=== PATIENT | female | born 1975 | race Caucasian/White ===

== ENCOUNTER → 2018-02-07 | Outpatient (CLI) | payer BC ==
--- NOTE | 2018-02-08 14:24 | MM ---
Reason for exam: screening (asymptomatic). Last mammogram was performed 2 years and 10 months ago. History: Family history of breast cancer in maternal aunt. Took hormonal contraceptives for 10 years. Physical Findings: A clinical breast exam by your physician is recommended on an annual basis and results should be correlated with mammographic findings. MG 3D Screening Mammo W/Cad Bilateral CC and MLO view(s) were taken. Prior study comparison: March 26, 2015, bilateral MG 3d diag mammo w/cad [facility]. May 16, 2013, CAD bilateral diagnostic mammogram. The breast tissue is heterogeneously dense. This may lower the sensitivity of mammography. No significant changes when compared with prior studies. ASSESSMENT: Negative, BI-RAD 1 RECOMMENDATION: Routine screening mammogram of both breasts in 1 year.
== END ==
LOC: RADMAMWWP 09:34
PROVIDERS: ATTEND Obstetrics & Gynecology
DX: Z12.31 Encounter for screening mammogram for malignant neoplasm of breast (principal)
CPT/HCPCS: 77063; 77067

== ENCOUNTER 2018-06-15 08:47 | Observation (INO) | payer BC ==
[2018-06-15] MEDS ORDERED: ASPIRIN 81 MG PO STA (09:03)
[2018-06-15] MEDS ORDERED: SODIUM CHLORIDE 0.9% 1,000 ML IV STA ×2 (09:03)
--- NOTE | 2018-06-15 09:09 | ED ---
Chest Pain HPI - General Chief Complaint: Chest Pain Stated Complaint: palpataions Time Seen by Provider: 06/15/18 08:58 Source: patient, RN notes reviewed, old records reviewed Mode of arrival: ambulatory Limitations: no limitations - History of Present Illness Initial Comments: Patient is a 42-year-old female who presents emergency department today co mplaining of intermittent chest pain since Tuesday. She complains of an episode of feeling flushed and palpitations starting this morning. Patient reports she was standing getting ready for work at a warm feeling come over her body at that time had some palpitations complaint of left arm numbness and tingling. Patient reports she called EMS but then decided to have her drive her to the ospital. She does have a strong family history of heart disease, father at age 55 from heart attack. Patient states that she has no personal medical history besides migraines. Patient denies any chest pain at this time. She reports that palpitations subsided. - Related Data Home Medications Medication Instructions Recorded Confirmed Aspirin/Acetaminophen/Caffeine 1 tab PO Q12H PRN 06/15/18 06/15/18 [Excedrin Migraine Caplet] Ibuprofen [Motrin Ib] 200 mg PO Q6H PRN 06/15/18 06/15/18 Allergies Allergy/AdvReac Type Severity Reaction Status Date / Time No Known Allergies Allergy Verified 06/15/18 09:00 Review of Systems ROS Statement: Those systems with pertinent positive or pertinent negative responses have been documented in the HPI. ROS Other: All systems not noted in ROS Statement are negative. EKG Findings - EKG Comments: EKG Findings:: EKG performed shows normal sinus rhythm abnormal EKG noted. Ventricular rate is 76 bpm. SC interval is 146 ms. QRS duration 92 ms. QT QTc is 380/427 ms. No evidence of ST elevation or T-wave inversion. Past Medical History Past Medical History: No Reported History History of Any Multi-Drug Resistant Organisms: None Reported Past Surgical History: Orthopedic Surgery Past Psychological History: No Psychological Hx Reported Smoking Status: Never smoker Past Alcohol Use History: Occasional Past Drug Use History: None Reported General Exam - General Exam Comments Initial Comments: 42-year-old female, alert and oriented. No significant distress. Limitations: no limitations General appearance: alert, in no apparent distress Head exam: Present: atraumatic, normocephalic, normal inspection Eye exam: Present: normal appearance, PERRL, EOMI. Absent: scleral icterus, conjunctival injection, periorbital swelling ENT exam: Present: normal exam, mucous membranes moist Neck exam: Present: normal inspection. Absent: tenderness, meningismus, lymphadenopathy Respiratory exam: Present: normal lung sounds bilaterally. Absent: respiratory distress, wheezes, rales, rhonchi, stridor Cardiovascular Exam: Present: regular rate, normal rhythm, normal heart sounds. Absent: systolic murmur, diastolic murmur, rubs, gallop, clicks GI/Abdominal exam: Present: soft, normal bowel sounds. Absent: distended, tenderness, guarding, rebound, rigid Extremities exam: Present: normal inspection, full ROM, normal capillary refill. Absent: tenderness, pedal edema, joint swelling, calf tenderness Back exam: Present: normal inspection Neurological exam: Present: alert, oriented X3, CN II-XII intact Psychiatric exam: Present: normal affect, normal mood Skin exam: Present: warm, dry, intact, normal color. Absent: rash Course Vital Signs 06/15/18 06/15/18 06/15/18 08:51 09:20 09:50 Temperature 98.8 F Pulse Rate 98 78 82 Respiratory 18 16 17 Rate Blood Pressure 140/83 141/88 129/107 O2 Sat by Pulse 99 99 98 Oximetry 06/15/18 10:00 Temperature Pulse Rate 73 Respiratory 9 L Rate Blood Pressure 129/107 O2 Sat by Pulse 100 Oximetry Chest Pain MDM - MDM 2-year-old female with family history of cardiac disease presents emergency Department today with complaint of palpitations over the past few days. She states today she woke up with a flushed feeling complained of some chest pain left arm tingling. Patient denies any nausea. She states that time she was also having some palpitations. Upon arrival to ED she states that her pain is diminished and no further palpitations. At this time patient's EKG shows sinus rhythm. IV was established blood work completed. Blood work was reviewed and unremarkable. A negative first troponin. Patient was chest x-ray shows no acute critical Merry process. No significant change from prior. Discussed concerns for her episodes of chest pain or discomfort like to have the Patient for repeat troponins. Discussed this case with Dr. Truong discussed the case with Dr. Miles. Disposition Clinical Impression: History of palpitations, Chest pain Disposition: ADMITTED IP TO THIS HOSP Condition: Stable Is patient prescribed a controlled substance at d/c from ED?: No Referrals: Ramses Miles MD [Primary Care Provider] - 1-2 days Time of Disposition: 11:57
[2018-06-15 09:44] LABS: Basophils % (A) 1 %; Eosinophils # (A) 0.1 k/uL (0-0.7); Eosinophils % (A) 2 %; HCT 38.7 % (34.0-46.0); HGB 12.6 gm/dL (11.4-16.0); Lymphocytes # (A) 0.9 k/uL (1.0-4.8); Lymphocytes % (A) 24 %; MCH 27.4 pg (25.0-35.0); MCHC 32.6 g/dL (31.0-37.0); MCV 83.8 fL (80.0-100.0); Mean Platelet Volume 7.8; Monocytes # (A) 0.3 k/uL (0-1.0); Monocytes % (A) 8 %; Neutrophils # (A) 2.4 k/uL (1.3-7.7); Neutrophils % (A) 63 %; Platelet Count 312 k/uL (150-450); RBC 4.62 m/uL (3.80-5.40); RDW 13.6 % (11.5-15.5); WBC 3.8 k/uL (3.8-10.6)
--- NOTE | 2018-06-15 09:44 | XR ---
EXAMINATION TYPE: XR chest 2V DATE OF EXAM: 06/15/2018 COMPARISON: Prior chest x-ray April 29, 2011. HISTORY: Heart palpitations with chest pain. TECHNIQUE: Frontal and lateral views of the chest are obtained. FINDINGS: Overlying EKG leads are redemonstrated. There is no focal air space opacity, pleural effusi on, or pneumothorax seen. The cardiac silhouette size is within normal limits. The osseous structu res are intact. IMPRESSION: No acute cardiopulmonary process. No significant change from prior.
[2018-06-15 09:52] LABS: Partial Thromboplastin Time 22.8 sec (22.0-30.0); Prothrombin Time 10.4 sec (9.0-12.0)
[2018-06-15 10:00] LABS: ALT 21 U/L (9-52); AST 18 U/L (14-36); Albumin 4.4 g/dL (3.5-5.0); Alkaline Phosphatase 57 U/L (38-126); Amylase 45 U/L (30-110); Anion Gap 8 mmol/L; Blood Urea Nitrogen 14 mg/dL (7-17); Calcium 9.4 mg/dL (8.4-10.2); Carbon Dioxide 25 mmol/L (22-30); Chloride 107 mmol/L (98-107); Glucose 93 mg/dL (74-99); Lipase 96 U/L (23-300); Magnesium 1.8 mg/dL (1.6-2.3); Potassium 4.1 mmol/L (3.5-5.1); Sodium 140 mmol/L (137-145); Total Bilirubin 0.5 mg/dL (0.2-1.3)
[2018-06-15] MEDS ORDERED: NITROGLYCERIN SL TABS 0.4 MG TAB SUBLINGUAL PRN (11:58)
[2018-06-15] MEDS ORDERED: IBUPROFEN 200 MG TAB PO PRN (19:26)
[2018-06-16 04:38] LABS: Cholesterol 182 mg/dL (<200); HDL Cholesterol 61 mg/dL (40-60); LDL Cholesterol,Calculated 113 mg/dL (0-99); Triglycerides 41 mg/dL (<150)
[2018-06-16] MEDS ORDERED: ACETAMINOPHEN TAB 500 MG TAB PO STA (07:03)
[2018-06-16 07:58] VITALS: RESP 18
[2018-06-16] MEDS ORDERED: ASPIRIN 325 MG TAB PO SCH (09:00)
--- NOTE | 2018-06-16 09:37 | P.HPIM ---
History of Present Illness H&P Date: 06/16/18 Chief Complaint: Chest pressure. The patient has been complaining of intermittent chest pressure with radiation to the jaw but no nausea. No diaphoresis is stated. She was not necessary doing anything active. And she's never had symptoms like this in the past but however given her family history of premature [place] in her father and grandfather, she was appropriately admitted for observation and evaluation. She's pain-free now. No enzymatic elevation was noted. She recently saw me as a new patient and was started on amitriptyline but she has not started this medication. We're giving this to her for insomnia/chronic headaches. Review of Systems Constitutional: Denies chills, Denies fever Eyes: denies blurred vision, denies pain Ears, nose, mouth and throat: Denies headache, Denies sore throat Cardiovascular: Reports as per HPI, Reports chest pain, Denies leg edema, Denies lightheadedness, Denies orthopnea, Denies shortness of breath Respiratory: Denies cough Gastrointestinal: Denies abdominal pain, Denies diarrhea, Denies nausea, Denies vomiting Genitourinary: Denies dysuria, Denies hematuria Musculoskeletal: Denies myalgias Past Medical History Past Medical History: No Reported History Additional Past Medical History / Comment(s): Migraines, seasonal allergies, UTI. History of Any Multi-Drug Resistant Organisms: None Reported Past Surgical History: Orthopedic Surgery Additional Past Surgical History / Comment(s): R patellar surgery Past Anesthesia/Blood Transfusion Reactions: No Reported Reaction Smoking Status: Never smoker - Past Family History Father Family Medical History: Myocardial Infarction ([place]) Additional Family Medical History / Comment(s): Father of a [place] at the age of 55yrs. Mother Family Medical History: Hyperlipidemia, Hypertension Medications and Allergies Home Medications Medication Instructions Recorded Confirmed Type Aspirin/Acetaminophen/Caffeine 1 tab PO Q12H PRN 06/15/18 06/15/18 History [Excedrin Migraine Caplet] Ibuprofen [Motrin Ib] 200 mg PO Q6H PRN 06/15/18 06/15/18 History Allergies Allergy/AdvReac Type Severity Reaction Status Date / Time No Known Allergies Allergy Verified 06/15/18 09:00 Physical Exam Vitals: Vital Signs Temp Pulse Pulse Resp BP BP BP 06/16/18 07:57 99.1 F 74 18 120/78 04/19/19 03:43 98.2 F 71 16 109/71 06/16/18 02:16 16 06/16/18 00:00 98.4 F 82 16 112/67 06/15/18 20:00 16 06/15/18 19:56 98.4 F 66 16 129/78 06/15/18 15:52 98.3 F 76 16 117/73 06/15/18 12:44 98.3 F 91 18 140/80 06/15/18 12:26 98.4 F 87 18 123/83 06/15/18 10:00 73 9 L 129/107 06/15/18 09:50 82 17 129/107 Pulse Ox 06/16/18 07:57 99 06/16/18 03:43 98 06/16/18 02:16 06/16/18 00:00 98 06/15/18 20:00 06/15/18 19:56 96 06/15/18 15:52 97 06/15/18 12:44 99 06/15/18 12:26 98 06/15/18 10:00 100 06/15/18 09:50 98 Intake and Output 06/15/18 06/16/18 06/16/18 22:59 06:59 14:59 Other: # Voids 1 1 Results CBC & Chem 7: 06/15/18 09:22 06/15/18 09:22 Labs: Abnormal Lab Results - Last 24 Hours (Table) 06/15/18 06/15/18 Range/Units 09:22 09:22 Lymphocytes # 0.9 L (1.0-4.8) k/uL LDL Cholesterol, Calc 113 H (0-99) mg/dL HDL Cholesterol 61 H (40-60) mg/dL Thrombosis Risk Factor Assmnt - Choose All That Apply Any of the Below Risk Factors Present?: Yes Each Factor Represents 1 point: Age 41-60 years Other Risk Factors: No Other congenital or acquired thrombophilia - If yes, enter type in comment: No Thrombosis Risk Factor Assessment Total Risk Factor Score: 1 Thrombosis Risk Factor Assessment Level: Low Risk Assessment and Plan (1) Chest pain Current Visit: Yes Status: Acute Code(s): R07.9 - CHEST PAIN, UNSPECIFIED SNOMED Code(s): 37222577 (2) History of palpitations Current Visit: Yes Status: Acute Code(s): Z87.898 - PERSONAL HISTORY OF OTHER SPECIFIED CONDITIONS SNOMED Code(s): 783583732 Plan: Myocardial infraction ruled out. Anticipate stress testing today. Await echocardiogram result. We'll hopefully DC later this afternoon.
--- NOTE | 2018-06-16 10:56 | ECHOF ---
Referral Reason:CP MEASUREMENTS -------- HEIGHT: 165.1 cm WEIGHT: 55.8 kg BP: RVIDd: 2.1 cm (< 3.3) IVSd: 1.0 cm (0.6 - 1.1) LVIDd: 3.9 cm (3.9 - 5.3) LVPWd: 0.9 cm (0.6 - 1.1) IVSs: 1.0 cm LVIDs: 3.2 cm LVPWs: 1.1 cm LA Diam: 2.3 cm (2.7 - 3.8) Ao Diam: 3.0 cm (2.0 - 3.7) AV Cusp: 1.7 cm (1.5 - 2.6) LA Diam: 3.3 cm (2.7 - 3.8) MV EXCURSION: 22.907 mm (> 18.000) MV EF SLOPE: 124 mm/s (70 - 150) EPSS: 1.4 cm MV E Gopi: 0.74 m/s MV DecT: 219 ms MV A Gopi: 0.70 m/s MV E/A Ratio: 1.06 RAP: 5.00 mmHg RVSP: 16.77 mmHg FINDINGS -------- Sinus rhythm. This was a technically good study. LV size, wall thickness and systolic function are normal, with an EF greater than 55%. The left octavio tricular size is normal. The right ventricle is normal in size. The left atrial size is normal. The right atrial size is normal. Interatrial and interventricular septum intact. There is mild aortic valve sclerosis. There is no evidence of aortic regurgitation. Mild mitral regurgitation is present. Mild tricuspid regurgitation present. There is no evidence of pulmonary hypertension. The right v entricular systolic pressure, as measured by Doppler, is 16.77mmHg. There is no pulmonic regurgitation present. The aortic root size is normal. Normal inferior vena cava with normal inspiratory collapse consistent with estimated right atrial pre ssure of 5 mmHg. There is no pericardial effusion. CONCLUSIONS -------- 1. LV size, wall thickness and systolic function are normal, with an EF greater than 55%. 2. The left ventricular size is normal. 3. The right ventricle is normal in size. 4. The left atrial size is normal. 5. The right atrial size is normal. 6. Interatrial and interventricular septum intact. 7. There is mild aortic valve sclerosis. 8. Mild mitral regurgitation is present. 9. Mild tricuspid regurgitation present. 10. There is no evidence of pulmonary hypertension. 11. The right ventricular systolic pressure, as measured by Doppler, is 16.77mmHg. 12. There is no pulmonic regurgitation present. 13. The aortic root size is normal. 14. Normal inferior vena cava with normal inspiratory collapse consistent with estimated right atrial pressure of 5 mmHg. 15. There is no pericardial effusion. GEOGRAPHICAL HISTORIAN: Myesha Betancourt RDCS
[2018-06-16 11:35] VITALS: BP 122/76; PULSE 73; TEMP 98.2
--- NOTE | 2018-06-16 12:30 | ECHOS ---
STRESS ECHOCARDIOGRAM DATE OF SERVICE: 06/16/2018 INDICATIONS: Chest pain. MEDICATIONS: BASELINE HEART RATE: 73 BASELINE BLOOD PRESSURE: 135/69 MAXIMUM HEART RATE: 156 MAXIMUM BLOOD PRESSURE: 208/74 85% MPHR: 151 100% MPHR: 178 METS: 10.3 MAXIMUM STAGE REACHED: III TOTAL EXERCISE TIME: 8 minutes 30 seconds CLINICAL INFORMATION: Baseline EKG revealed normal sinus rhythm without significant ST-T changes. Patient walked for 8 minutes 30 seconds achieved a maximal heart rate of 156 beats per minute. There was a lot of artifact. She did not have any angina. She developed some fatigue and shortness of breath. EKG did not reveal any ST-segment changes to indicate ischemia. There was no arrhythmia. By EKG criteria, this is a negative stress test with good exercise capacity. Baseline echo images revealed normal wall motion and wall thickening of all segments. At peak exercise, there was good augmentation of left ventricular wall motion and wall thickening of all segments suggesting that there is no evidence of stress-induced ischemia on this study. IMPRESSION: 1. Good exercise capacity with a negative stress test by EKG criteria. 2. Negative stress echocardiogram. MMODL / IJN: [id number] /
--- NOTE | 2018-06-16 17:03 | CONS ---
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 She has history of migraine headaches. Other than that, no significant medical problems. She is a reasonably active lady. She came into the hospital because of left arm discomfort initially and then had some sharp pains in the chest. The quality of the pain seemed very atypical. The pain seemed to persist, made her quite concerned. Her chest x-ray was unremarkable. She had an EKG performed, which also did not reveal any significant abnormalities. Her troponin levels are normal. She is resting comfortably without symptoms. These symptoms seem to have been going on for some time but progressively got worse, made her feel quite concerned. She does have a strong family history of premature coronary artery disease. At the time of my evaluation, she is resting comfortably without symptoms. PAST MEDICAL HISTORY: 1. Remarkable for migraine headaches. 2. She is status post some arthroscopic surgery in the past. ALLERGIES: None. MEDICATIONS: She takes some aspirin, Excedrin for migraine. PHYSICAL EXAMINATION: Blood pressure is 110/70, pulse rate is 70 per minute and regular. HEENT unremarkable. Fundus was not examined by me. Neck is supple. No JVD. I do not hear a carotid bruit. There is no thyromegaly. Heart exam reveals S1, S2 heard normally. No rub, murmur or gallop lungs are clear. Abdomen is soft, nontender. Lower extremities reveal normal pulses. No edema. Central nervous system is normal. EKG revealed sinus mechanism, no acute changes. LABORATORY DATA: Laboratory data revealed unremarkable troponins. IMPRESSION: 1. Atypical chest pain. 2. Migraine headaches. RECOMMENDATION: Patient's chest pain is atypical. I am recommending an echocardiogram and a stress echo and if these are normal, she can be discharged with risk factor modification. I discussed my thoughts in detail with the patient. Thank you very much for the consult. MMODL / IJN: [id number] /
== END 2018-06-16 14:48 | disposition home or self-care (01) ==
LOC: EC 08:47 → 1SOBS 11:49
PROVIDERS: ADMIT Family Medicine; ATTEND Family Medicine
DX: R07.89 Other chest pain (principal); G43.909 Migraine, unspecified, not intractable, without status migrainosus; G47.00 Insomnia, unspecified; Z87.898 Personal history of other specified conditions; Z79.899 Other long term (current) drug therapy; Z79.82 Long term (current) use of aspirin; Z87.440 Personal history of urinary (tract) infections; Z82.49 Family history of ischemic heart disease and other diseases of the circulatory system
CPT/HCPCS: 96361 ×3; 96360; 99285; 36415; 93005; 93306; 93351; 80061; 80053; 82150; 83690; 83735; 84484; 85025; 85610; 85730; 71046; G0378 ×2

== ENCOUNTER → 2019-10-16 | Outpatient (CLI) | payer BC ==
[2019-10-16 15:24] LABS: Basophils # (A) 0.1 k/uL (0-0.2); Basophils % (A) 1 %; Eosinophils # (A) 0.1 k/uL (0-0.7); Eosinophils % (A) 1 %; HCT 39.3 % (34.0-46.0); HGB 12.3 gm/dL (11.4-16.0); Lymphocytes # (A) 1.5 k/uL (1.0-4.8); Lymphocytes % (A) 26 %; MCH 27.3 pg (25.0-35.0); MCHC 31.2 g/dL (31.0-37.0); MCV 87.6 fL (80.0-100.0); Mean Platelet Volume 7.7; Monocytes # (A) 0.6 k/uL (0-1.0); Monocytes % (A) 10 %; Neutrophils # (A) 3.4 k/uL (1.3-7.7); Neutrophils % (A) 59 %; Platelet Count 256 k/uL (150-450); RBC 4.49 m/uL (3.80-5.40); RDW 12.8 % (11.5-15.5); WBC 5.7 k/uL (3.8-10.6)
== END | disposition home or self-care (01) ==
LOC: LABPAT 13:17
PROVIDERS: ATTEND Obstetrics & Gynecology
DX: Z01.818 Encounter for other preprocedural examination (principal)
CPT/HCPCS: 85025

== ENCOUNTER 2019-10-23 06:13 | Day surgery (SDC) | payer BC ==
--- NOTE | 2019-10-22 19:30 | P.HPOB ---
History of Present Illness H&P Date: 10/22/19 Chief Complaint: Menorrhagia with regular cycle, family planning This is a 43 y.o. female, 3, para 3, who presents for dilatation and curettage with hysteroscopy and Novasure endometrial ablation along with laparoscopic bilateral tubal ligation via fulgaration due to menorrhagia with regular cycle. She complains of heavy menses occuring every 28 days lasting 6-7 days with large clots. She also has mild dysmenorrhea. She would like definitive surgical treatment for this problem and would like tubal ligation for family planning. She is currently using rhythm method. OB Hx: . History of 3 vaginal deliveries. Arbitrator Hx: Hx of chlamydia treated years ago. Social Hx: . Works at [employer]. Review of Systems Constitutional: Reports fatigue, Denies chills, Denies fever Eyes: denies blurred vision, denies pain Ears, nose, mouth and throat: Denies sore throat Cardiovascular: Denies chest pain, Denies shortness of breath Respiratory: Denies cough Gastrointestinal: Denies abdominal pain, Denies diarrhea, Denies nausea, Denies vomiting Genitourinary: Reports dysmenorrhea, Reports menorrhagia Menstruation: Reports period heavy Musculoskeletal: Denies myalgias Integumentary: Denies pruritus, Denies rash Neurological: Reports headaches (occ), Denies numbness, Denies weakness Psychiatric: Reports anxiety, Reports insomnia, Reports irritability Hematologic/Lymphatic: Reports easy bruising Past Medical History Past Medical History: No Reported History Additional Past Medical History / Comment(s): Migraines, seasonal allergies, UTI. History of Any Multi-Drug Resistant Organisms: None Reported Past Surgical History: Orthopedic Surgery Additional Past Surgical History / Comment(s): R patellar surgery Past Anesthesia/Blood Transfusion Reactions: No Reported Reaction, Postoperative Nausea & Vomiting (PONV) Past Psychological History: Anxiety Smoking Status: Never smoker Past Alcohol Use History: Occasional Past Drug Use History: None Reported - Past Family History Father Family Medical History: Myocardial Infarction ([place]) Additional Family Medical History / Comment(s): Father of a [place] at the age of 55yrs. Mother Family Medical History: Hyperlipidemia, Hypertension Medications and Allergies Home Medications Medication Instructions Recorded Confirmed Type No Known Home Medications 10/22/19 10/22/19 History Allergies Allergy/AdvReac Type Severity Reaction Status Date / Time No Known Allergies Allergy Verified 10/22/19 09:03 Exam Osteopathic Statement: *. No significant issues noted on an osteopathic structural exam other than those noted in the History and Physical/Consult. Intake and Output 10/22/19 10/22/19 10/22/19 06:59 14:59 22:59 Other: Weight 54.431 kg HEENT: within normal limits Heart: regular rate and rhythm Lungs: clear to auscultation bilaterally Abdomen: soft, non-tender Pelvic: uterus is retroverted, non-tender, with no adnexal masses or tenderness Extremities: neg. Dee Dee's Assessment and Plan (1) Menorrhagia with regular cycle Current Visit: No Status: Acute Code(s): N92.0 - EXCESSIVE AND FREQUENT MENSTRUATION WITH REGULAR CYCLE SNOMED Code(s): 079745295 (2) Family planning Current Visit: No Status: Acute Code(s): Z30.09 - ENCOUNTER FOR OT GENERAL CNSL AND ADVICE ON CONTRACEPTION SNOMED Code(s): 545146583 Plan: Proceed with dilatation and curettage with hysteroscopy and Novasure endometrial ablation and laparoscopic bilateral tubal ligation via fulgaration. I have discussed the risks, benefits, and alternative therapies for the above- mentioned procedure and for both sedation/anesthesia as well as necessary blood products administration, if indicated, as they pertain to this patient. The patient has indicated her understanding and acceptance of the risks and procedures discussed.
[~2019-10-23 06:13] MED LIST: DEXAMETHASONE SOD PHOSPHATE 10 MG/ML 1 ML VIAL IV ONE; LACTATED RINGERS 1,000 ML IV SCH; LIDOCAINE 1% (10MG/ML) FOR IV START INTRADERMA PRN; ONDANSETRON 4 MG/2 ML VIAL IVP ONE; Pre Op ABX Message 1 EACH MISC MISCELLANE ONE; fentaNYL (PF) 50 MCG/ML 2 ML AMP IV PRN
[2019-10-23] MEDS ORDERED: ONDANSETRON 4 MG/2 ML VIAL ONE (06:39)
[2019-10-23] MEDS ORDERED: fentaNYL (PF) 50 MCG/ML 2 ML AMP ONE (07:28)
[2019-10-23] MEDS ORDERED: SUCCINYLCHOLINE CHLORIDE 100 MG/5 ML SYR IV ONE (07:28)
[2019-10-23] MEDS ORDERED: GLYCOPYRROLATE 0.2 MG/ML 2 ML VIAL ONE (07:28)
[2019-10-23] MEDS ORDERED: LIDOCAINE 1% INJ 10MG/ML (20 ML MDV) ONE (07:28)
[2019-10-23] MEDS ORDERED: NEOSTIGMINE 1 MG/ML 10 ML VIAL ONE (07:28)
[2019-10-23] MEDS ORDERED: MIDAZOLAM 2 MG/2 ML VIAL ONE (07:28)
[2019-10-23] MEDS ORDERED: PROPOFOL 10 MG/ML 20 ML VIAL IV ONE (07:28)
[2019-10-23] MEDS ORDERED: ROCURONIUM 10 MG/ML (5 ML VIAL) IV ONE (07:28)
[2019-10-23] MEDS ORDERED: KETOROLAC 30 MG/ML 1 ML VIAL ONE (07:28)
[2019-10-23] MEDS ORDERED: BUPIVACAINE (PF) 0.25% 30 ML VIAL SQ ONE ×3 (08:18→08:30)
--- NOTE | 2019-10-23 08:37 | P.OP ---
Date of Procedure: 10/23/19 Preoperative Diagnosis: Menorrhagia with regular cycle Family planning Postoperative Diagnosis: Same plus endometriosis and bilateral ovarian cysts Procedure(s) Performed: Dilation and curettage with hysteroscopy and NovaSure endometrial ablation Laparoscopic bilateral tubal ligation via fulguration Drainage of bilateral ovarian cysts Anesthesia: KATHE Surgeon: Zahida Tapia Estimated Blood Loss (ml): 10 Pathology: other (Endometrial curettings) Condition: stable Disposition: same day Indications for Procedure: This is a 43 y.o. female, 3, para 3, who presents for dilatation and curettage with hysteroscopy and Novasure endometrial ablation along with laparoscopic bilateral tubal ligation via fulgaration due to menorrhagia with regular cycle. She complains of heavy menses occuring every 28 days lasting 6-7 days with large clots. She also has mild dysmenorrhea. She would like definitive surgical treatment for this problem and would like tubal ligation for family planning. She is currently using rhythm method. Operative Findings: Uterus is mid position, sounded to 8-1/2 cm. Cervix is sounded to 3 cm. Upon hysteroscopy, a dyssynchronous endometrial pattern is noted. Both tubal ostia are visualized. Upon laparoscopy, both ovaries did have small endometriomas approximate 2-3 cm each. These were chocolate-colored cystic areas that drained a dark brown discharge. There were some areas of endometriosis noted behind the ovarian fossa on both sides and in the cul-de-sac. Uterus appeared normal. Description of Procedure: The patient is taken to the operating room. She is placed in the dorsal l ithotomy position after general anesthesia was given. She is prepped and draped in the normal sterile fashion. Bladder is drained with a catheter and then removed. Pelvic exam is performed under anesthesia. Uterus is found to be mid position with no adnexal masses. She is placed in slight Trendelenburg position. A right angle retractor is used to visualize the cervix. The anterior lip of the cervix is grasped with a single-tooth tenaculum. Cervix is sounded to 3 cm. Uterus is sounded to 8.5 cm. Cervix is gently dilated with Roe dilators until a hysteroscope could be passed. Hysteroscopy is performed using normal saline. The above noted findings are noted. Next a polyp forceps is introduced. A moderate amount of tissue was obtained. Next medium-sized size sharp curette was placed. A moderate amount of endometrial curettings were obtained. Next NovaSure array was inserted into the endometrial cavity. Length was set at 5.5 cm and width was determined to be 4.5 cm. Next cavity assessment was completed and passed on the first try. Next NovaSure array was fired at 136 W for 54 seconds. Next the array was removed, inspected and then discarded. Next the hysteroscope was reinserted. Uniform charring was noted. Pictures were taken. Hysteroscope was removed. A kroner uterine manipulator is then inserted through the cervix and the balloon is inflated. Single-tooth tenaculum was removed from the anterior lip of the cervix. Minimal bleeding was noted. All other instruments removed from the vagina. Gloves are changed. Attention is then turned to the abdomen. A small stab incision was made with a scalpel in the infraumbilical fold. A towel clip was placed above the umbilicus for retraction. A 5 mm disposable bladeless trocar was then inserted into the peritoneal cavity under direct visualization. Once inside, pneumoperitoneum was achieved with CO2 gas. The insert was removed and the camera was placed. Intraperitoneal placement was confirmed. No bleeding was noted. Next the patient was placed in Trendelenburg position. A small stab incision was made suprapubically and a 5 mm disposable bladeless trocar was inserted into the peritoneal cavity under direct visualization. Once inside pelvic contents were inspected. Next a bipolar Kleppinger instrument was placed through the inferior trocar and the midportion of each tube was brought away from other structures and completely fulgurated on approximate 2-3 cm segment of each tube. Excellent hemostasis was noted. Pictures were taken. There were noted to be bilateral small ovarian cysts that appeared to be a small endometriomas with chocolate colored fluid within them. The right cyst ruptured spontaneously with manipulation with a probe. The left cyst was drained with a aspirating needle. Suction irrigation was completed to remove the cyst fluid. Excellent hemostasis was noted. Pneumoperitoneum was released after the inferior trocar was removed under direct visualization. The upper trocar was then removed. The skin incisions were then closed with 4-0 Vicryl suture in a subcuticular fashion. Incisions were then injected with quarter percent Marcaine. Approximately 4 mL were used. Next the kroner uterine manipulator was removed. Minimal bleeding was noted. All sponge and needle counts are correct. The patient is then taken to recovery room in stable condition.
[2019-10-23] MEDS: HYDROmorphone 0.5 MG/0.5 ML SYRINGE IVP PRN ×2 (09:01→09:17)
[2019-10-23 09:16] VITALS: RESP 16
[2019-10-23 10:23] VITALS: BP 132/85; PULSE 80
[2019-10-23 11:36] VITALS: TEMP 97.5
== END 2019-10-23 10:30 | disposition home or self-care (01) ==
LOC: OR 06:13
PROVIDERS: ATTEND Obstetrics & Gynecology
DX: N92.0 Excessive and frequent menstruation with regular cycle (principal); Z30.2 Encounter for sterilization; N80.1 Endometriosis of ovary; N80.3 Endometriosis of pelvic peritoneum; N83.201 Unspecified ovarian cyst, right side; N83.202 Unspecified ovarian cyst, left side; F41.9 Anxiety disorder, unspecified; G43.909 Migraine, unspecified, not intractable, without status migrainosus; Z88.1 Allergy status to other antibiotic agents; Z87.440 Personal history of urinary (tract) infections; Z98.890 Other specified postprocedural states; Z82.49 Family history of ischemic heart disease and other diseases of the circulatory system
CPT/HCPCS: 81025; 88305; 58563; 58670; 49322; J2250; J1100; J2710; J2405; J2001; J3010; J1885; J0330; J2704; J1170

== ENCOUNTER → 2020-06-11 | Outpatient (CLI) | payer BC ==
--- NOTE | 2020-06-18 10:00 | MM ---
Reason for exam: screening (asymptomatic). Last mammogram was performed 2 years and 4 months ago. History: Family history of breast cancer in maternal aunt. Took hormonal contraceptives for 10 years. Physical Findings: A clinical breast exam by your physician is recommended on an annual basis and results should be correlated with mammographic findings. MG 3D Screening Mammo W/Cad Bilateral CC and MLO view(s) were taken. Prior study comparison: February 07, 2018, bilateral MG 3d screening mammo w/cad. March 26, 2015, bilateral MG 3d diag mammo w/cad [facility]. The breast tissue is heterogeneously dense. This may lower the sensitivity of mammography. Finding: There is a 8 mm obscured round mass located 6 cm from the nipple in the slight upper outer quadrant, anterior position of the left breast. New finding since February 07, 2018 and March 26, 2015. ASSESSMENT: Incomplete: need additional imaging evaluation, BI-RAD 0 RECOMMENDATION: Ultrasound of the left breast. [facility] will attempt to contact patient to return for ultrasound.
== END | disposition home or self-care (01) ==
LOC: RADMAMWWP 15:41
PROVIDERS: ATTEND Obstetrics & Gynecology
DX: Z12.31 Encounter for screening mammogram for malignant neoplasm of breast (principal); Z80.3 Family history of malignant neoplasm of breast
CPT/HCPCS: 77063; 77067

== ENCOUNTER → 2020-06-26 | Outpatient (CLI) | payer BC ==
--- NOTE | 2020-06-26 11:57 | USB ---
Reason for exam: additional evaluation requested from abnormal screening. History: Family history of breast cancer in maternal aunt. Took hormonal contraceptives for 10 years. Physical Findings: Nurse did not find any significant physical abnormalities on exam. US Breast Workup Limited LT Left limited breast ultrasound including focal area of concern, retroareolar and axilla demonstrates a 0.3 x 0.4 x 0.3cm cystic lesion at 1 o'clock. These results were verbally communicated with the patient and result sheet given to the patient on 06/26/20. ASSESSMENT: Suspicious, BI-RAD 4 RECOMMENDATION: Ultrasound core biopsy of the left breast. Called Dr. Tapia's office with mammographic findings and has scheduled an appointment for the patient for 08/14/20 at 8:[address] Saeed. Biopsy scheduled for 07/09/20 at 9:30. PRELIMINARY REPORT CALLED AND FAXED TO DR. SAEED ON 06/26/20.
== END | disposition home or self-care (01) ==
LOC: RADUSWWP 07:31
PROVIDERS: ATTEND Obstetrics & Gynecology
DX: R92.8 Other abnormal and inconclusive findings on diagnostic imaging of breast (principal); Z80.3 Family history of malignant neoplasm of breast

== ENCOUNTER → 2020-07-09 | Day surgery (SDC) | payer BC ==
[2020-07-09 09:43] VITALS: RESP 16
[2020-07-09 11:06] VITALS: BP 127/80; PULSE 77; TEMP 98.8
--- NOTE | 2020-07-09 11:53 | USB ---
EXAMINATION TYPE: US biopsy breast VAD LT, MG diagnostic mammo LT wo CAD DATE OF EXAM: 07/09/2020 CLINICAL HISTORY: R92.8 abnormal mammogram. TECHNIQUE: Ultrasound guided core biopsy of right 1:00 breast. COMPARISON: NONE FINDINGS: The procedure of ultrasound guided core biopsy was explained to the patient. Benefits, alternatives, and risks were discussed. An informed consent was then obtained. The patient was placed in supine positioning for imaging and for the procedure. The overlying skin was prepped and draped in usual sterile fashion. Lidocaine buffered with bicarbonate was used as anesthetic into the skin and subcutaneous tissue up to area of concern in the right 1:00 breast. A sean was made with surgical scalpel. Under ultrasound guidance, a 12-gauge vacuum assisted biopsy gun device was used to obtain 1 core sample. The lesion is no longer visualized. Following this, a biopsy clip was left in lesion. The patient tolerated the procedure well without any immediate complication. The patient was kept in the radiology department for short stay after the procedure and then discharged home in stable condition. IMPRESSION: Successful, uncomplicated ultrasound guided core biopsy of area of concern in the right 1:00 breast, full pathology results to follow. Pathology Results: Benign LEFT BREAST, ONE VIRGIN[place]OCK, ULTRASOUND GUIDED CORE BIOPSY: Fibrocystic changes including cysts, apocrine metaplasia and fibrosis LEFT BREAST, FINE NEEDLE ASPIRATE: Minimally cellular specimen consisting of blood and rare histiocytes. Non-diagnostic. Recommendation Follow up ultrasound of the left breast in 6 months. MAKENZIE
== END ==
LOC: RADUSWWP 09:34
PROVIDERS: ATTEND Surgery
DX: N60.12 Diffuse cystic mastopathy of left breast (principal); N60.82 Other benign mammary dysplasias of left breast; R92.8 Other abnormal and inconclusive findings on diagnostic imaging of breast
CPT/HCPCS: 88305; 88173; 77065; 19083; A4648; J2001

== ENCOUNTER → 2020-10-03 | Outpatient (CLI) | payer BC ==
[2020-10-03 10:14] VITALS: RESP 12
[2020-10-03 11:08] VITALS: BP 142/87; PULSE 60; TEMP 97.6
--- NOTE | 2020-10-03 16:19 | USB ---
EXAMINATION TYPE: US breast aspiration single LT DATE OF EXAM: 10/03/2020 CLINICAL HISTORY: R92.8 abn mammo. TECHNIQUE: Ultrasound guided vaccuum assisted cyst aspiration of left breast. COMPARISON: NONE FINDINGS: The ultrasound guided cyst aspiration procedure was explained to the patient. The risks, b enefits, alternatives were discussed. An informed consent was then obtained. Timeout was performed. The patient was placed in supine positioning for imaging and for the procedure. The overlying skin w as prepped with betadine and sterilely draped in usual sterile fashion. Lidocaine 1% was used as ane sthetic into the skin and deeper breast tissue up to area of concern in the breast. Under ultrasound guidance, an 18-gauge spinal needle was used to obtain red-tinged fluid sample. A b iopsy clip was left in lesion. Wing clip was utilized. Good hemostasis was obtained with direct pressure. Discharge instructions were discussed with the pa debbie. The patient will follow up with the referring physician for results. Postprocedure mammogram: The patient was transferred to mammography for physician ordered post proced ure mammogram for clip placement verification. The clip is in the expected region of the biopsy. Sonia ges were reviewed with the patient. The patient tolerated the procedure well without any immediate complication. The patient was [facility] to home in stable condition. IMPRESSION: 1. Successful ultrasound guided cyst aspiration left breast. Recommendations: 1. Recommendations are pending pathology results.
== END | disposition home or self-care (01) ==
LOC: RADMAMWWP 08:49
PROVIDERS: ATTEND Surgery
DX: R92.8 Other abnormal and inconclusive findings on diagnostic imaging of breast (principal)
CPT/HCPCS: 77065; 77061; 76942; 19000; 76641; A4648; J2001; 88108

== ENCOUNTER → 2023-04-05 | Outpatient (CLI) | payer OTHER ==
--- NOTE | 2023-04-05 10:04 | MM ---
Reason for Exam: Clinical finding. Last mammogram was performed 2 year(s) and 10 month(s) ago. Indicated Problems: Lump or thickening of the right side (size pea) for 8 Month(s). Patient History: Menarche at age 14. First Full-Term at age 28. Patient has history of breast feeding. Hormonal Contraceptives for 10 years until age 37. 10/03/2020, Benign Cyst Aspiration on the left side. 07/09/2020, Benign Core Biopsy on the left side. Maternal aunt had breast cancer. Last menstrual period: 03/23/2023 Risk Values: Yolanda 5 year model risk: 1.2%. NCI Lifetime model risk: 11.3%. Prior Study Comparison: 02/07/2018 Bilateral Screening Mammogram, [facility]. 06/11/2020 Bilateral Screening Mammogram, [facility]. 07/09/2020 Left Diagnostic Mammogram, [facility]. 10/03/2020 Left Diagnostic Mammogram, [facility]. 10/03/2020 Left Diagnostic Mammogram, [facility]. Tissue Density: The breast tissue is heterogeneously dense. This may lower the sensitivity of mammography. Findings: Analyzed By CAD. Nodular density far posterior right breast corresponds to the palpable abnormality. Ultrasound is advised. No distinct nodular mass within the left breast. Microclip marker's left breast from prior cyst aspirations. No suspicious calcifications present. Overall Assessment: Incomplete: need additional imaging evaluation, BI-RAD 0 Management: Diagnostic Breast Ultrasound of the right breast. . Results were given to the patient verbally at the time of exam. Patient should continue monthly self-breast exams. A clinical breast exam by your physician is recommended on an annual basis. This exam should not preclude additional follow-up of suspicious palpable abnormalities. Note on Yolanda scores and lifetime risk: 1. A Yolanda score greater than 3% is considered moderate risk. If this is the case, consider specialist referral to assess eligibility for a risk reducing agent. 2. If overall lifetime risk for the development of breast cancer is 20% or higher, the patient may qualify for future screening with alternating mammogram and breast MRI. Electronically signed and approved by: Jake Harley M.D. Radiologis
--- NOTE | 2023-04-05 10:28 | USB ---
Reason for Exam: Clinical finding. Patient History: Menarche at age 14. First Full-Term at age 28. Patient has history of breast feeding. Hormonal Contraceptives for 10 years until age 37. 10/03/2020, Benign Cyst Aspiration on the left side. 07/09/2020, Benign Core Biopsy on the left side. Maternal aunt had breast cancer. Risk Values: Yolanda 5 year model risk: 1.2%. NCI Lifetime model risk: 11.3%. Technique: Method: Targeted. Prior Study Comparison: 07/09/2020 Left Diagnostic Mammogram, [facility]. 10/03/2020 Left Diagnostic Mammogram, [facility]. 10/03/2020 Left Diagnostic Mammogram, [facility]. Findings: The lateral section of the breast of the right breast was scanned. Hyperechoic subcutaneous lesion at the right 9:00 position 13 cm from the nipple measuring 6 x 3 mm. This likely reflects a lipoma. Average clinically. Overall Assessment: Benign, BI-RAD 2 Management: Screening Mammogram of both breasts in 1 year. A clinical breast exam by your physician is recommended on an annual basis and results should be correlated with mammographic findings. This exam should not preclude additional follow-up of suspicious palpable abnormalities. Results were given to the patient verbally at the time of exam. Electronically signed and approved by: Jake Harley M.D. Radiologis
== END | disposition home or self-care (01) ==
LOC: RADMAMWWP 09:37
PROVIDERS: ATTEND Obstetrics & Gynecology
DX: R92.333 Mammographic heterogeneous density, bilateral breasts (principal); N63.10 Unspecified lump in the right breast, unspecified quadrant; N63.20 Unspecified lump in the left breast, unspecified quadrant; Z80.3 Family history of malignant neoplasm of breast
CPT/HCPCS: 77062; 77066